=== PATIENT | male | born 1985 | race Caucasian/White ===

== ENCOUNTER 2024-07-16 09:09 | Emergency (ER) | payer OTHER, SELFPAY ==
[2024-07-16 09:11] VITALS: BMI 23.3
[2024-07-16 09:18] VITALS: BP 137/100
--- NOTE | 2024-07-16 10:35 | ED.GENMED ---
History of Present Illness
General
Chief Complaint: Allergic Reaction
Source: patient
Exam Limitations: none
Time Seen by Provider: 07/16/24 09:17
Nursing documentation reviewed up to this point in time: agreed with
History of Present Illness
History of Present Illness:
Patient presents to ED for evaluation secondary to shortness of breath with nausea sensation, after being stung by a number of bees while he was at work this morning. Patient self administered 50 mg of Benadryl immediately, with gradual improvement
in symptoms. Patient states that he has had number of similar symptoms in the past secondary to bee stings. Denies chest pain. Denies dizziness. Denies vomiting. Denies chest pain. At the time of evaluation ED, patient states that most of his
symptoms have resolved.
Past History
Past History
ED Past Medical History: None
Review of Systems
Review of Systems
Allergies reviewed?: Yes
All Other Systems: ROS reviewed and negative except as documented in HPI and ROS
Constitutional: Reports no symptoms
EENT: Reports no symptoms
Respiratory: Reports no symptoms
Cardiac: Reports no symptoms
ABD/GI: Reports no symptoms
Musculoskeletal: Reports no symptoms
Skin: Reports no symptoms
Neurological: Reports no symptoms
Phy Exam
Physical Exam
Physical Exam:
Physical Exam
General: no apparent distress, not acutely ill. afebrile
Head: nc/at. eomi
Neck: supple. normal range of motion.
Heart: s1/s2 regular rate and rhythm, no murmur. equal radial pulses.
Lungs: no acute respiratory distress. clear bilaterally
Abdomen: normal bowel sounds. not tender.
Neuro: alert and oriented. no focal neurological deficits
Skin: multiple punctured cervantes with minimal surrounding erythema noted over UE/neck/chest
Psychiatric: well kept. interactive and cooperative
Extremities: no edema. no calf tenderness.
Course
Vital Signs
Initial and Last Documented VS:
Initial Vital Signs
Temp Pulse Resp BP Pulse Ox
98.1 F 50 16 137/100 99
07/16/24 09:18 07/16/24 09:18 07/16/24 09:18 07/16/24 09:18 07/16/24 09:18
Last Documented Vital Signs
Temp Pulse Resp BP Pulse Ox
98.1 F 69 18 139/82 98
07/16/24 09:18 07/16/24 11:28 07/16/24 11:28 07/16/24 11:28 07/16/24 11:28
MDM/Problems Addressed
MDM/Problems Addressed:
Patient with complete resolution of symptoms after treatment in ED. Patient will be discharged home in stable condition, to the care of his family. Patient given prescription for EpiPen, to be used as needed in the future, with worsening symptoms.
*Critical Care Note
Total Time (30-74mins, 75-104mins- exclusive of procedures): Not Applicable
ED Attending Note
-
Portions of this chart may have been created with voice recognition software.� Occasional wrong word or��sound alike� substitutions may have occurred due to the inherent limitations of voice recognition software.
Discharge Plan
Departure
Patient Disposition: Home (Routine Discharge)
Date of Disposition: 07/16/24
Time of Disposition: 11:25
Patient with high blood pressure during this ER visit?: Yes
Discharge Problem:
Bee sting
Instructions: Insect Bites and Stings ED
Prescriptions:
New
epinephrine [EpiPen 2-Gwyn] 0.3 mg/0.3 mL auto-injector
0.3 mg IM ONCE Qty: 2 0RF
No Action
prednisone 10 MG tablet
10 mg PO DAILY Qty: 42 0RF
Referrals:
NONE,* [Family Provider] -
Activity Restrictions/Additional Instructions:
As discussed, please follow-up with your primary care physician with any further concerns. Your prescription has been sent electronically to [facility] pharmacy in [place].
Interventions
Interventions:
*Risk Screen - Suicide Last Done: 07/16/24 09:11
*General Assessment Last Done: 07/16/24 09:11
*Neglect/Abuse Screening Last Done: 07/16/24 09:11
ED- Fall Risk Assessment Last Done: 07/16/24 11:29
*ED COVID-19 Vaccine History Last Done: 07/16/24 11:28
*Nursing Disposition Last Done: 07/16/24 11:29
ED- Cardiac Assessment Last Done: 07/16/24 09:19
ED- Pulmonary Assessment Last Done: 07/16/24 09:19
ED-Skin Assessment Last Done: 07/16/24 09:19
Discharge Date and Time
Discharge Date/Time: 07/16/24 11:30
Print Language: [id number]
[2024-07-16 11:28] VITALS: BP 139/82
== END 2024-07-16 11:30 | disposition home or self-care (01) ==
LOC: EMR 09:09
PROVIDERS: EMERGENCY PHYSICIAN Emergency Medicine
DX: T63.441A Toxic effect of venom of bees, accidental (unintentional), initial encounter (principal); S41.132A Puncture wound without foreign body of left upper arm, initial encounter; S41.131A Puncture wound without foreign body of right upper arm, initial encounter; S11.93XA Puncture wound without foreign body of unspecified part of neck, initial encounter; S21.139A Puncture wound without foreign body of unspecified front wall of thorax without penetration into thoracic cavity, initial encounter; R06.02 Shortness of breath; R11.0 Nausea; Y93.89 Activity, other specified; Y92.89 Other specified places as the place of occurrence of the external cause; Y99.0 Civilian activity done for income or pay; R03.0 Elevated blood-pressure reading, without diagnosis of hypertension; Z87.891 Personal history of nicotine dependence
CPT/HCPCS: 99283